=== PATIENT | male | born 1980 | race Caucasian/White ===

== ENCOUNTER 2021-05-29 22:37 | Emergency (ER) | payer OTHER ==
[~2021-05-29] VITALS: Ht 160 cm; Wt 93.0 kg
[2021-05-29 22:43] VITALS: BP 157/101
[2021-05-29 22:45] VITALS: BP 171/102
[2021-05-29 22:47] VITALS: BP 157/98
[2021-05-29 23:00] VITALS: BP 160/90
[2021-05-29] MEDS ORDERED: LOSARTAN POTASS25 MG PO (23:04)
[2021-05-29] MEDS ORDERED: FLEXERIL5 M1 PO (23:07)
[2021-05-29] MEDS ORDERED: NAPROXEN250 MG PO (23:08)
[2021-05-29 23:16] VITALS: BP 154/91
[2021-05-29 23:18] LABS: HEMATOCRIT 43.3 % (39.0-50.0); HEMOGLOBIN 14.8 g/dl (14.0-18.0); IMMATURE GRANULOCYTES 0.4 % (0.0-5.0); MEAN CELL VOLUME 88.4 fL CALC (80.0-100.0); MEAN CORPUSCULAR HGB 30.2 pG CALC (26.0-32.0); MEAN CORPUSCULAR HGB CONC 34.2 g/dL CAL (32.0-36.0); NEUT# 5.06 thou/uL (1.82-7.42); RED BLOOD COUNT 4.9 mill/uL (4.70-6.10); RED CELL DISTRI WIDTH 12.5 % (11.5-15.5)
[2021-05-29 23:24] LABS: ALBUMIN 4.6 g/dL (3.2-5.0); ALKALINE PHOSPHATASE 64 u/l (38-126); ANION GAP 13 (6-22 (CALC)); BILIRUBIN, TOTAL 0.4 mg/dL (0.0-1.4); BUN 17 mg/dL (9-20); BUN/CREATININE RATIO 12 (12-20 (CALC)); CARBON DIOXIDE 29 mmol/l (22-30); CHLORIDE 101 mmol/l (95-108); CREATININE 1.4 mg/dL (0.7-1.3); GFR 56 ML/MIN (>=60 (CALC)); GFR FOR AFR.AMER. > 60 ML/MIN (>=60 (CALC)); POTASSIUM 3.3 mmol/l (3.5-5.1); SGOT/AST 78 u/l (17-59); SODIUM 140 mmol/l (137-146)
[2021-05-29 23:30] VITALS: BP 137/86
[2021-05-29 23:38] LABS: MYOGLOBIN 509 ng/mL (0 - 121)
[2021-05-30] VITALS: BP 135/88
[2021-05-30 00:14] LABS: URINE BILIRUBIN - DIPSTICK NEGATIVE (NEGATIVE); URINE BLOOD DIPSTICK NEGATIVE (NEGATIVE); URINE COLOR YELLOW; URINE GLUCOSE - DIPSTICK NEGATIVE (NEGATIVE); URINE KETONE NEGATIVE (NEGATIVE); URINE LEUK ESTERASE NEGATIVE (NEGATIVE); URINE NITRITE - DIPSTICK NEGATIVE (Negative); URINE PROTEIN - DIPSTICK NEGATIVE (NEG-TRACE); URINE UROBILINOGEN - DIPSTICK 0.2 E.U./dL (0.2)
[2021-05-30 00:15] VITALS: BP 145/88
[2021-05-30 00:30] VITALS: BP 150/94
[2021-05-30] MEDS ORDERED: NAPROXEN500 MG PO (00:31)
[2021-05-30 00:45] VITALS: BP 148/98
== END 2021-05-30 00:56 | disposition home or self-care (01) | DRG 556 ==
LOC: ED 22:37
PROVIDERS: Emergency Medicine
DX: M79.18 Myalgia, other site (principal); I10 Essential (primary) hypertension

== ENCOUNTER 2022-04-11 15:28 | Emergency (ER) | payer OTHER ==
[~2022-04-11] VITALS: Ht 165.1 cm; Wt 86.2 kg
[~2022-04-11 15:28] MED LIST: FLEXERIL5 M1 PO; LOSARTAN POTASS25 MG PO; NAPROXEN250 MG PO; NAPROXEN500 MG PO
[2022-04-11] MEDS ORDERED: LOSARTAN POTASS25 MG PO (15:40)
[2022-04-11] MEDS ORDERED: PERCOCET 5/325M1 TAB PO (19:06)
[2022-04-11] MEDS ORDERED: CYCLOBENZAPRINE10 MG PO (19:06)
[2022-04-11] MEDS ORDERED: MOTRIN800 MG PO (19:06)
[2022-04-11 20:27] VITALS: BP 119/76
== END 2022-04-11 20:40 | disposition home or self-care (01) | DRG 552 ==
LOC: ED 15:28
PROC: BW2FZZZ Computerized Tomography (CT Scan) of Neck (ICD-10-PCS; principal; 2022-04-11)
DX: S13.4XXA Sprain of ligaments of cervical spine, initial encounter (principal); V43.62XA Car passenger injured in collision with other type car in traffic accident, initial encounter